=== PATIENT | female | born 1945 | race Caucasian/White ===

== ENCOUNTER 2024-01-27 16:38 | Observation (INO) | payer MEDICARE ==
[2024-01-27 17:33] LABS: #Basophils Less than 0.03 10x3/uL (0.0-0.2); %Basophils 0.4 % (0.0-1.0); %Eosinophils 0.6 % (0.0-10.0); %Lymphocytes 17.4 % (21.0-51.0); %Monocytes 2.9 % (0.0-10.0); %Neutrophils 78.5 % (42.0-75.0); Hematocrit 38.9 % (36.0-47.0); Hemoglobin 12.1 g/dL (12.0-16.0); Mean Corpuscular HGB CONC 31.1 g/dL (32.0-36.0); Mean Corpuscular Hemoglobin 30.4 pg (27.0-31.0); Mean Corpuscular Volume 97.7 fL (78.0-98.0); Mean Platelet Volume 9.2 fL (7.4-10.4); Platelet Count 221 10x3/uL (130-400); Red Blood Cell (RBC) Count 3.98 mill/uL (4.20-5.40)
[2024-01-27 17:49] LABS: ALT (SGPT) 8 U/L (8-55); AST (SGOT) 18 U/L (5-34); Albumin 3.7 g/dL (3.4-4.8); Alkaline Phosphatase 67 U/L (40-110); Anion Gap 21 mmol/L (10-20); BUN (Urea Nitrogen) 30 mg/dL (9.8-20.1); Bilirubin, Total 0.4 mg/dL (0.2-1.2); Calc. Creatinine Clearance 0 mL/min (70-130); Calcium 9.3 mg/dL (7.8-10.44); Carbon Dioxide 16 mmol/L (23-31); Chloride 105 mmol/L (98-107); Estimated GFR 62; Globulin 2.9 g/dL (2.4-3.5); Glucose 134 mg/dL (83-110); Protein, Total 6.6 g/dL (5.8-8.1); Sodium 138 mmol/L (136-145)
[2024-01-27 17:55] LABS: Troponin I 0.016 ng/mL (< 0.028)
[2024-01-27 21:34] LABS: Base Excess -0.8 mEq/L (-2.0 to +3.0); Calcium, Ionized (venous) 1.09 mmol/L (1.16-1.32); Chloride (VBG) 102 mmol/L (98-106); Hematocrit-VBG 36 % (36.0-47.0); Hemoglobin (Hb) 12.2 g/dL (11.7-16.1); Potassium (VBG) 3.81 mmol/L (3.70-5.30); Sodium 139 mmol/L (133-146); pH (venous) 7.471 (7.32-7.43)
[2024-01-27 21:50] LABS: Bacteria/HPF None Seen HPF (None Seen); Bilirubin Negative (Negative); Blood, Urine Trace (Negative); CAUTI Indications for Culture Alt mental st,lethar; Clarity Clear (Clear); Glucose, Urine (Dipstick) Normal (Negative); Ketone, Urine 40 mg/dL (Negative); Leukocyte 500 Leu/uL (Negative); Nitrite Negative (Negative); Protein, Urine (Dipstick) 50 mg/dL (Neg-Trace); RBC/HPF 0-3 HPF (0-3); Specific Gravity, Urine 1.015 (1.002-1.036); Squamous Epithelial 0-3 HPF (0-3); Urobilinogen Normal mg/dL (Less than 2); WBC/HPF 21-50 HPF (0-3); pH, Urine 5.5 (5.0-9.0)
[2024-01-27 21:51] LABS: Urine Culture Reflex Yes Yes
[2024-01-27] MEDS ORDERED: Dextrose 10% in Water 250 ML ONE (22:06)
[2024-01-27 22:09] LABS: Anion Gap 20 mmol/L (10-20); BUN (Urea Nitrogen) 29 mg/dL (9.8-20.1); Calc. Creatinine Clearance 0 mL/min (70-130); Calcium 8.9 mg/dL (7.8-10.44); Carbon Dioxide 19 mmol/L (23-31); Chloride 103 mmol/L (98-107); Estimated GFR 71; Glucose 54 mg/dL (83-110); Potassium 3.7 mmol/L (3.5-5.1); Sodium 138 mmol/L (136-145)
[2024-01-27] MEDS ORDERED: Sodium Chloride 0.9% 100 ML ONE (23:06)
[2024-01-27] MEDS ORDERED: cefTRIAXone (ROCEPHIN) 1 GM VIAL ONE (23:06)
[2024-01-28] MEDS ORDERED: Ondansetron PF 4 MG/2 ML Vial IVP PRN (00:27)
[2024-01-28] MEDS ORDERED: Glucagon 1 MG/ML KIT IM PRN (00:27)
[2024-01-28] MEDS ORDERED: Dextrose 5% in Water 1,000 ML IV PRN (00:27)
[2024-01-28] MEDS ORDERED: Dextrose 50% Abboject 50 ML SYRINGE SLOW IVP PRN (00:27)
[2024-01-28] MEDS ORDERED: Acetaminophen 325 MG TAB PO PRN (00:27)
[2024-01-28] MEDS ORDERED: Ondansetron ODT 4 MG TAB PO PRN (00:27)
[2024-01-28 03:42] VITALS: BMI 21.1
[2024-01-28] MEDS: traMADol HCl 50 MG TAB PO SCH (04:13)
[2024-01-28] MEDS: Gabapentin 300 MG CAP PO SCH ×3 (04:14→14:33)
[2024-01-28] MEDS ORDERED: Dicyclomine 10 MG CAP PO PRN (09:07)
[2024-01-28 09:50] LABS: #Basophils Less than 0.03 10x3/uL (0.0-0.2); %Basophils 0.4 % (0.0-1.0); %Eosinophils 1.2 % (0.0-10.0); %Lymphocytes 23.4 % (21.0-51.0); %Monocytes 6.7 % (0.0-10.0); %Neutrophils 68.1 % (42.0-75.0); Hematocrit 32.7 % (36.0-47.0); Hemoglobin 10.9 g/dL (12.0-16.0); Mean Corpuscular HGB CONC 33.3 g/dL (32.0-36.0); Mean Corpuscular Hemoglobin 30.3 pg (27.0-31.0); Mean Corpuscular Volume 90.8 fL (78.0-98.0); Mean Platelet Volume 9.4 fL (7.4-10.4); Platelet Count 222 10x3/uL (130-400)
[2024-01-28 10:14] LABS: Anion Gap 16 mmol/L (10-20); BUN (Urea Nitrogen) 25 mg/dL (9.8-20.1); Calc. Creatinine Clearance 35 mL/min (70-130); Calcium 9.1 mg/dL (7.8-10.44); Carbon Dioxide 22 mmol/L (23-31); Chloride 102 mmol/L (98-107); Estimated GFR 63; Glucose 167 mg/dL (83-110); Potassium 3.7 mmol/L (3.5-5.1); Sodium 136 mmol/L (136-145)
[2024-01-28] MEDS: Carvedilol 6.25 MG TAB PO SCH (10:30)
[2024-01-28] MEDS: Amlodipine 5 MG TAB PO SCH (10:30)
[2024-01-28] MEDS: Aspirin 81 mg Enteric Coated Tablet PO SCH (10:31)
[2024-01-28] MEDS: traMADol HCl 50 MG TAB PO PRN (10:31)
[2024-01-28] MEDS: FLUoxetine HCl 10 MG CAP PO SCH (10:31)
[2024-01-28] MEDS: Clopidogrel Bisulfate 75 MG TAB PO SCH (10:31)
[2024-01-28] MEDS: glyBURIDE 5 MG TAB PO SCH (10:32)
[2024-01-28 14:41] VITALS: BP 171/64; TEMP 97.7
[2024-01-28] MEDS ORDERED: Carvedilol 6.25 MG TAB PO SCH (21:00)
[2024-01-28] MEDS ORDERED: Simvastatin 40 MG TAB PO SCH (21:00)
[2024-01-28] MEDS ORDERED: Atorvastatin Calcium 20 MG TAB PO SCH ×2 (21:00)
[2024-01-28] MEDS ORDERED: cefTRIAXone\\ROCEPHIN 1 GM in Sodium Chloride 0.9% 100 ML IVPB SCH (23:00)
[2024-01-29] MEDS ORDERED: Levothyroxine Sodium 50 MCG TAB PO SCH (06:00)
[2024-01-29] MEDS ORDERED: glyBURIDE 5 MG TAB PO SCH (08:00)
[2024-01-29] MEDS ORDERED: FLUoxetine HCl 10 MG CAP PO SCH (09:00)
[2024-01-29] MEDS ORDERED: Aspirin 81 mg Enteric Coated Tablet PO SCH (09:00)
[2024-01-29] MEDS ORDERED: Amlodipine 5 MG TAB PO SCH (09:00)
[2024-01-29] MEDS ORDERED: Clopidogrel Bisulfate 75 MG TAB PO SCH (09:00)
== END 2024-01-28 14:43 | disposition home or self-care (01) ==
LOC: ERS 16:38 → T4-B 01-28 00:32
PROVIDERS: ADMIT Physician Assistant; ATTEND Hospitalist
DX: E11.649 Type 2 diabetes mellitus with hypoglycemia without coma (principal); N39.0 Urinary tract infection, site not specified; R19.7 Diarrhea, unspecified; R10.9 Unspecified abdominal pain; I10 Essential (primary) hypertension; E78.5 Hyperlipidemia, unspecified; E11.9 Type 2 diabetes mellitus without complications; E03.9 Hypothyroidism, unspecified; I25.10 Atherosclerotic heart disease of native coronary artery without angina pectoris; K21.9 Gastro-esophageal reflux disease without esophagitis; Z79.84 Long term (current) use of oral hypoglycemic drugs; Z88.8 Allergy status to other drugs, medicaments and biological substances; Z90.49 Acquired absence of other specified parts of digestive tract; Z90.710 Acquired absence of both cervix and uterus; Z98.49 Cataract extraction status, unspecified eye; Z98.890 Other specified postprocedural states; Z79.02 Long term (current) use of antithrombotics/antiplatelets
CPT/HCPCS: 80048 ×2; 80053; 81001; 82805; 82962 ×2; 83605; 84484; 85025 ×2; 87086; 93005; 96361; 96374; 96375; 99285; G0378 ×2; J0696; 36415; 36416